=== PATIENT | female | born 1980 | race Caucasian/White ===

== ENCOUNTER 2017-05-05 22:48 | Emergency (ER) | payer MEDICAID ==
[2017-05-05 23:15] LABS: Urine Bilirubin Negative (NEGATIVE); Urine Blood Negative /ul (NEGATIVE); Urine Ketone Negative (NEGATIVE); Urine Nitrite Negative (NEGATIVE); Urine Protein Negative (NEGATIVE); Urine Specific Gravity <=1.005 SP.GR. (1.005-1.010); Urine Urobilinogen Normal (NORMAL)
[2017-05-05 23:22] LABS: Urine Appearance Clear; Urine Color Yellow
[2017-05-05 23:23] LABS: Urine Bacteria 1+; Urine RBC None Seen /hpf (0-5); Urine WBC None Seen /hpf (0-5)
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
[2017-05-05 23:29] LABS: Hematocrit 40.6 % (37.0-47.0); Hemoglobin 13.9 gm/dL (12.5-16.0); Mean Cell Volume 84.1 fl (78-100); Mean Corpuscular Hemoglobin 28.8 pg (27-31); Mean Corpuscular Hgb Conc 34.2 g/dl (32-36); Mean Platelet Volume 9.2 fl (6.0-9.5); Neutrophil # 2.5 K/mm3 (1.3-6.0); Neutrophil % 42.7 % (42-75.0); Platelet Count 277 K/mm3 (150-450); Red Blood Count 4.83 M/mm3 (4.2-5.4); Red Cell Distribution Width 12.4 % (11.5-14.0); White Blood Count 5.9 K/mm3 (4.0-10.5)
[2017-05-05 23:42] LABS: Albumin * 4.3 gm/dl (3.4-5.0); Anion Gap 14.5 mmol/L (6.8-13.8); BUN/Creatinine Ratio 8.8 (9.0-21.6); Bilirubin, Total 0.2 mg/dL (0.0-1.1); Ca. Corrected For Albumin 8.2 mg/dL (8.4-10.2); Calcium * 8.8 mg/dL (7.9-10.9); Carbon Dioxide 24.1 mmol/L (24-32.6); Potassium 3.6 mmol/L (3.4-4.6); Total Protein 7.3 gm/dL (6.2-8.2)
[2017-05-06] MEDS ORDERED: NALBUPHINE HCL 20 MG/ML AMPUL ONE (01:00)
[2017-05-06] MEDS ORDERED: ONDANSETRON HCL/PF 2 MG/ML VIAL ONE (01:00)
[2017-05-06] MEDS: ONDANSETRON HCL/PF 2 MG/ML VIAL IV ONE (01:02)
[2017-05-06] MEDS: NALBUPHINE HCL 20 MG/ML AMPUL IV ONE (01:03)
[2017-05-06] MEDS ORDERED: ONDANSETRON 4 MG TAB.RAPDIS ONE (01:29)
[2017-05-06] MEDS: ONDANSETRON 4 MG TAB.RAPDIS PO ONE (01:34)
[2017-05-06 02:03] VITALS: BP 134/75
== END 2017-05-06 01:34 | disposition home or self-care (01) ==
LOC: ER 22:48
DX: R10.84 Generalized abdominal pain (principal); Z85.41 Personal history of malignant neoplasm of cervix uteri; Z87.891 Personal history of nicotine dependence; F31.9 Bipolar disorder, unspecified
CPT/HCPCS: 36415; 74020; 80053; 81001; 82150; 82272; 83690; 85025; 96374; 96375; 99284; J2405